=== PATIENT | female | born 1955 | race Caucasian/White ===

== ENCOUNTER → 2016-12-05 | Outpatient (CLI) | payer BC ==
[~2016-12-05] MED LIST: CPR500T PO; FEXO-95 PO; FLUC150T PO; MELO-249 PO; MNTL10T PO; PRED20TA PO
[2016-12-05 11:33] VITALS: BP 141/85
--- NOTE | 2016-12-05 11:33 | Urgent Care T Sheet Gen (E) ---
Intake General Temperature (Fahrenheit): 97.6 Pulse: 79 Blood Pressure Systolic: 141 Blood Pressure Diastolic: 85 Respirations: 20 SPO2: 100 Description of Symptoms Patient presents with illness since Sunday. No fever. Notes nasal congestion, ear fullness, raspy voice and cough. Can feel the drainage down her throat which makes her cough. Been taking Nyquil and Dayquil. Has also been gargling with salt water. Ran out of her Singulair and has noticed worsening drainage since. History of Present Illness Home Meds Active Scripts Fluconazole (Diflucan)150 Mg [id number] Mg PO ONCE #1 TAB Prov:FARHANJADEANDER MARCELO 10/11/16 Fexofenadine HCl 180 Mg [id number] Mg PO DAILY #30 TAB Prov:JADE REAL 10/11/16 Montelukast Sodium 10 Mg [id number] Mg PO DAILY #30 TAB Prov:FARHANJADEANDER MARCELO 10/11/16 Meloxicam 15 Mg [id number] Mg PO DAILY #30 TAB Prov:JADE REAL 10/11/16 Ciprofloxacin HCl (Cipro)500 Mg [id number] Mg PO BID Infection #10 TAB Ref 0 Prov:TMLISETTEJADE Rebecca MARCELO 09/20/16 Respiratory Constitutional Symptoms: No syptoms reported EENTM: Nose Congestion Throat pain Respiratory: Cough Cardiovascular: No symptoms reported Gastrointestinal/Abdominal: No symptoms reported All Other Systems Reviewed Remaining Systems: All other systems reviewed with negative findings Physical Exam Physical Exam General Appearance: WD/WN No apparent distress Eyes, Ears, Nose, Throat Ex: TMs normal (air fluid bubbles) Pharyngeal erythema (irritated with PND) Other (nasal congestion with clear, thin drainage) Neck Exam: SuppleNo Lymphadenopathy Respiratory Exam: Lungs clear Normal breath sounds Cardiovascular Exam: Regular rate, rhythm Departure Urgent Care Impression Impression: Primary Impression: URI (upper respiratory infection) Qualified Code: J00 - Acute nasopharyngitis [common cold] Departure Disposition: HOME OR SELF-CARE Condition: Stable Referrals: DELANEY SHAFER MD (PCP) Additional Instructions: The patient states she ran out of her Singulair a few days ago and hasn't been able to see her PCP for a refill. I refilled for a month. I have also started her on Prednisone x 3 days. This should help with drainage and throat irritation. If no better once the Prednisone is done, she may then start the Augmentin 500mg BID x 10 days I sent home. Rest. Fluids Return as needed or f/u with PCP Patient understands DC instructions. All questions were answered. Scripts Montelukast Sodium 10 Mg [id number] Mg PO DAILY #30 TAB Prov:JADE REAL 12/05/16 Prednisone 20 Mg [id number] Mg PO DAILY #6 TAB Prov:JADE REAL 12/05/16 End of report . JADE REAL Dec 05, 2016 11:33
== END ==
LOC: MHUC 10:42
PROVIDERS: ATTEND Physician Assistant
DX: J00 Acute nasopharyngitis [common cold] (principal)
CPT/HCPCS: 99213

== ENCOUNTER → 2017-01-30 | Outpatient (CLI) | payer BC ==
[2017-01-30 08:53] LABS: BASOPHILS % (AUTO) 1 % (0-2); EOSINOPHILS # (AUTO) 0.2 10^3uL; EOSINOPHILS % (AUTO) 2 % (0-4); LYMPHOCYTES # (AUTO) 1.4 X10^3; MEAN CORPUSCULAR HEMOGLOBIN 30.9 PG (26.0-34.0); MEAN CORPUSCULAR HGB CONC 34.2 g/dL (31.0-37.0); MEAN CORPUSCULAR VOLUME 91 FL (80-100); MEAN PLATELET VOLUME 10.9 FL (6.0-9.5); MONOCYTES # (AUTO) 0.8 X10^3; MONOCYTES % (AUTO) 10 % (3-11); NEUTROPHILS # (AUTO) 5.5 X10^3; NEUTROPHILS % (AUTO) 69 % (51-67); PLATELET COUNT 214 10^3uL (150-450); WHITE BLOOD COUNT 8.01 10^3uL (4.0-11.0)
[2017-01-30 09:15] LABS: BILIRUBIN,URINE Negative (Negative); CLARITY,URINE Clear; COLOR,URINE Yellow; GLUCOSE, URINE (UA) Negative (Negative); LEUKOCYTE ESTERASE ,URINE Negative (Negative); UROBILINOGEN,URINE 0.2 mg/dL (0.2-1.0)
[2017-01-30 09:22] LABS: ALBUMIN 4.4 g/dL (3.4-5.0); TOTAL PROTEIN 8.1 g/dL (6.4-8.5)
== END ==
LOC: LAB 08:39
PROVIDERS: ATTEND Family Medicine
DX: Z00.00 Encounter for general adult medical examination without abnormal findings (principal); I10 Essential (primary) hypertension; I89.0 Lymphedema, not elsewhere classified; J45.20 Mild intermittent asthma, uncomplicated; J32.0 Chronic maxillary sinusitis
CPT/HCPCS: 36415; 80053; 80061; 81003; 84443; 85025

== ENCOUNTER → 2017-02-20 | Outpatient (REF) | payer BC | LOC: LAB 13:00 | PROVIDERS: ATTEND Family Medicine | DX: I10 Essential (primary) hypertension (principal) | CPT/HCPCS: 80048 ==